=== PATIENT | female | born 1945 | race Caucasian/White ===

== ENCOUNTER 2018-08-07 11:01 | Inpatient (IN) | payer MEDICARE, OTHER ==
[2018-08-07] MEDS ORDERED: ALBUTEROL/IPRATROPIUM 1 VIAL SOL ONE ×2 (11:08→11:33)
[2018-08-07] MEDS ORDERED: ALBUTEROL/IPRATROPIUM 1 VIAL SOL INH ONE ×2 (11:10→11:30)
[2018-08-07] MEDS ORDERED: SOLUMEDROL 125 MG/2 ML 125 MG/2 ML PDS IV ONE (11:21)
[2018-08-07] MEDS ORDERED: SODIUM CHLORIDE 0.9% 1000ML 1,000 ML IV ONE (11:22)
[2018-08-07] MEDS ORDERED: SOLUMEDROL 125 MG/2 ML 125 MG/2 ML PDS ONE (11:29)
[2018-08-07 11:30] LABS: ABG PH 7.44 (7.35-7.45)
[2018-08-07 11:30] LABS: BASOPHILS % (AUTO) 1 % (0-3); EOSINOPHILS % (AUTO) 10 % (0-9); HEMATOCRIT 43 % (35-47); HEMOGLOBIN 14.8 gm/dl (12.0-15.5); LYMPHOCYTES % (AUTO) 9.6 % (10-50); MEAN CORPUSCULAR HEMOGLOBIN 30.7 pg (27.0-32.0); MEAN CORPUSCULAR HGB CONC 34.3 gm/dl (32.0-36.0); MEAN CORPUSCULAR VOLUME 89 fL (81-99); MONOCYTES % (AUTO) 3.9 % (0-12); NEUTROPHILS % (AUTO) 75.2 % (37-80)
[2018-08-07 11:51] LABS: ALBUMIN 3.9 gm/dl (3.4-5.0); ALKALINE PHOSPHATASE 76 IU/L (46-116); ALT 29 IU/L (14-63); AST 25 IU/L (15-37); BLOOD UREA NITROGEN 15 mg/dl (7-18); CALCIUM 9.4 mg/dl (8.5-10.1); CARBON DIOXIDE 23.8 mEq/L (21-32); CHLORIDE 100 mMol/L (98-107); CREATININE 0.79 mg/dl (0.60-1.00); GLUCOSE 189 mg/dl (74-106); POTASSIUM 3.5 mMol/L (3.5-5.1); SODIUM 136 mMol/L (136-145); TOTAL PROTEIN 7.5 gm/dl (6.4-8.2); TROP I < 0.017 ng/ml (0.000-0.056)
[2018-08-07 12:07] LABS: LACTIC ACID 1.1 mMol/L (0.0-2.0)
[2018-08-07] MEDS ORDERED: SOLUMEDROL 125 MG/2 ML 125 MG/2 ML PDS IV SCH (13:30)
[2018-08-07] MEDS: ALBUTEROL NEB SOL 2.5MG/3ML 1 VIAL SOL NEB PRN ×3 (14:16→21:14)
[2018-08-07] MEDS: ALBUTEROL/IPRATROPIUM 1 VIAL SOL INH SCH ×2 (14:23→19:50)
[2018-08-07] MEDS: SODIUM CHLORIDE 0.9% 1000ML 1,000 ML IV SCH (16:59)
[2018-08-07] MEDS: SOLUMEDROL 125 MG/2 ML 125 MG/2 ML PDS IV SCH (19:54)
[2018-08-07] MEDS ORDERED: MONTELUKAST SODIUM 10 MG TAB ONE (21:12)
[2018-08-07] MEDS: ATORVASTATIN 10 MG TAB PO SCH (21:19)
[2018-08-07] MEDS: MONTELUKAST SODIUM 5 MG CTB PO SCH (21:20)
[2018-08-07] MEDS: Non-Formulary Medication MISC (Budesonide/Formoterol 160/4.5 2 PUFF) INH SCH (21:21)
[2018-08-07] MEDS: AZITHROMYCIN 250 MG TAB PO SCH (21:36)
[2018-08-08] MEDS: ALBUTEROL/IPRATROPIUM 1 VIAL SOL INH SCH ×4 (00:46→19:48)
[2018-08-08] MEDS: ALBUTEROL NEB SOL 2.5MG/3ML 1 VIAL SOL NEB PRN ×4 (02:11→17:27)
[2018-08-08] MEDS: SODIUM CHLORIDE 0.9% 1000ML 1,000 ML IV SCH ×2 (02:14→13:37)
[2018-08-08] MEDS: SOLUMEDROL 125 MG/2 ML 125 MG/2 ML PDS IV SCH ×3 (04:19→19:54)
[2018-08-08] MEDS: PANTOPRAZOLE SODIUM 40 MG ECT PO SCH (06:29)
[2018-08-08] MEDS: LEVOTHYROXINE SODIUM 50 MCG TAB PO SCH (06:29)
[2018-08-08] MEDS ORDERED: OMEPRAZOLE 20 MG CAPSULE PO SCH (07:00)
[2018-08-08] MEDS ORDERED: LEVOTHYROXINE SODIUM PO SCH (07:00)
[2018-08-08] MEDS ORDERED: [UNRECOGNIZED DRUG - OTHER] PO SCH (09:00)
[2018-08-08] MEDS ORDERED: AZITHROMYCIN 500 MG PDS IV SCH (09:00)
[2018-08-08] MEDS ORDERED: CALCIUM CITRATE PO SCH (09:00)
[2018-08-08] MEDS ORDERED: VITAMIN D3 PO SCH (09:00)
[2018-08-08] MEDS: Non-Formulary Medication MISC (Budesonide/Formoterol 160/4.5 2 PUFF) INH SCH (09:02)
[2018-08-08] MEDS: HYDROCHLOROTHIAZIDE 25 MG TAB PO SCH (09:03)
[2018-08-08] MEDS: LORATADINE 10 MG TAB PO SCH (09:03)
[2018-08-08] MEDS: LOSARTAN POTASSIUM 50 MG TAB PO SCH (09:03)
[2018-08-08] MEDS ORDERED: SODIUM CHLORIDE 0.9% 50 ML 50 ML IV ONE ×2 (09:07→20:00)
[2018-08-08] MEDS ORDERED: CEFTRIAXONE 1 GM PDS ONE ×2 (09:07→20:00)
[2018-08-08] MEDS: CALCIUM CARBONATE 500 MG TAB PO SCH (09:10)
[2018-08-08] MEDS: CHOLECALCIFEROL 1,000 IU TAB PO SCH (09:10)
[2018-08-08] MEDS: BUDESONIDE/FORMOTEROL 160/4.5 AER INH SCH ×2 (09:11→21:11)
[2018-08-08] MEDS: CEFTRIAXONE 1 GM PDS 1 GM in SODIUM CHLORIDE 0.9% 50 ML 50 ML IV SCH ×2 (09:21→20:08)
[2018-08-08] MEDS: SODIUM CHLORIDE 0.9% FLUSH 10 ML SOL IV SCH ×3 (17:39→20:08)
[2018-08-08] MEDS: AZITHROMYCIN 250 MG TAB PO SCH ×2 (19:46→21:11)
[2018-08-08] MEDS: ATORVASTATIN 10 MG TAB PO SCH (21:08)
[2018-08-08] MEDS: MONTELUKAST SODIUM 5 MG CTB PO SCH (21:10)
[2018-08-09] MEDS: ALBUTEROL/IPRATROPIUM 1 VIAL SOL INH SCH ×4 (01:27→20:03)
[2018-08-09] MEDS: SOLUMEDROL 125 MG/2 ML 125 MG/2 ML PDS IV SCH ×3 (04:12→20:05)
[2018-08-09] MEDS: SODIUM CHLORIDE 0.9% FLUSH 10 ML SOL IV SCH ×3 (04:12→20:06)
[2018-08-09] MEDS: PANTOPRAZOLE SODIUM 40 MG ECT PO SCH (07:12)
[2018-08-09] MEDS: LEVOTHYROXINE SODIUM 50 MCG TAB PO SCH (07:12)
[2018-08-09] MEDS ORDERED: CEFTRIAXONE 1 GM PDS ONE ×2 (08:54→19:57)
[2018-08-09] MEDS: CEFTRIAXONE 1 GM PDS 1 GM in SODIUM CHLORIDE 0.9% 50 ML 50 ML IV SCH ×2 (09:13→20:06)
[2018-08-09] MEDS: BUDESONIDE/FORMOTEROL 160/4.5 AER INH SCH ×2 (09:16→20:10)
[2018-08-09] MEDS: LORATADINE 10 MG TAB PO SCH (09:17)
[2018-08-09] MEDS: LOSARTAN POTASSIUM 50 MG TAB PO SCH (09:18)
[2018-08-09] MEDS: HYDROCHLOROTHIAZIDE 25 MG TAB PO SCH (09:18)
[2018-08-09] MEDS: CHOLECALCIFEROL 1,000 IU TAB PO SCH (09:18)
[2018-08-09] MEDS: CALCIUM CARBONATE 500 MG TAB PO SCH (11:01)
[2018-08-09] MEDS ORDERED: SODIUM CHLORIDE 0.9% 50 ML 50 ML IV ONE (19:59)
[2018-08-09] MEDS: ATORVASTATIN 10 MG TAB PO SCH (20:07)
[2018-08-09] MEDS: SENNOSIDES A AND B 8.6 MG TAB PO SCH (20:08)
[2018-08-09] MEDS: MONTELUKAST SODIUM 10 MG TAB PO SCH (20:09)
[2018-08-09] MEDS: AZITHROMYCIN 250 MG TAB PO SCH (20:10)
[2018-08-10] MEDS: ALBUTEROL/IPRATROPIUM 1 VIAL SOL INH SCH ×4 (01:01→19:57)
[2018-08-10] MEDS: SOLUMEDROL 125 MG/2 ML 125 MG/2 ML PDS IV SCH (04:38)
[2018-08-10] MEDS: SODIUM CHLORIDE 0.9% FLUSH 10 ML SOL IV SCH ×3 (04:38→19:57)
[2018-08-10] MEDS: ALBUTEROL NEB SOL 2.5MG/3ML 1 VIAL SOL NEB PRN (05:39)
[2018-08-10] MEDS: PANTOPRAZOLE SODIUM 40 MG ECT PO SCH (06:24)
[2018-08-10] MEDS: LEVOTHYROXINE SODIUM 50 MCG TAB PO SCH (06:24)
[2018-08-10 07:11] LABS: BASOPHILS % (AUTO) 0 % (0-3); EOSINOPHILS % (AUTO) 0 % (0-9); HEMATOCRIT 40 % (35-47); HEMOGLOBIN 13.7 gm/dl (12.0-15.5); LYMPHOCYTES % (AUTO) 6.2 % (10-50); MEAN CORPUSCULAR HEMOGLOBIN 30.5 pg (27.0-32.0); MEAN CORPUSCULAR HGB CONC 34.1 gm/dl (32.0-36.0); MEAN CORPUSCULAR VOLUME 89 fL (81-99); MONOCYTES % (AUTO) 4.4 % (0-12); NEUTROPHILS % (AUTO) 89.2 % (37-80)
[2018-08-10 07:16] LABS: CALCIUM 8.6 mg/dl (8.5-10.1); CARBON DIOXIDE 27.4 mEq/L (21-32); CREATININE 0.63 mg/dl (0.60-1.00); POTASSIUM 3.1 mMol/L (3.5-5.1)
[2018-08-10] MEDS ORDERED: POTASSIUM CHLORIDE 10 MEQ TER PO SCH (08:00)
[2018-08-10] MEDS: CHOLECALCIFEROL 1,000 IU TAB PO SCH (08:29)
[2018-08-10] MEDS: SENNOSIDES A AND B 8.6 MG TAB PO SCH ×2 (08:30→20:05)
[2018-08-10] MEDS: LOSARTAN POTASSIUM 50 MG TAB PO SCH (08:30)
[2018-08-10] MEDS: CALCIUM CARBONATE 500 MG TAB PO SCH (08:30)
[2018-08-10] MEDS: HYDROCHLOROTHIAZIDE 25 MG TAB PO SCH (08:30)
[2018-08-10] MEDS: LORATADINE 10 MG TAB PO SCH (08:31)
[2018-08-10] MEDS: BUDESONIDE/FORMOTEROL 160/4.5 AER INH SCH ×2 (08:32→20:06)
[2018-08-10] MEDS ORDERED: SODIUM CHLORIDE 0.9% 50 ML 50 ML IV ONE ×2 (08:34→19:49)
[2018-08-10] MEDS ORDERED: CEFTRIAXONE 1 GM PDS ONE ×2 (08:34→19:49)
[2018-08-10] MEDS: CEFTRIAXONE 1 GM PDS 1 GM in SODIUM CHLORIDE 0.9% 50 ML 50 ML IV SCH ×2 (08:43→19:57)
[2018-08-10] MEDS: PREDNISONE 20 MG TAB PO SCH (11:37)
[2018-08-10] MEDS: ATORVASTATIN 10 MG TAB PO SCH (20:05)
[2018-08-10] MEDS: AZITHROMYCIN 250 MG TAB PO SCH (20:06)
[2018-08-10] MEDS: MONTELUKAST SODIUM 10 MG TAB PO SCH (20:06)
[2018-08-11] MEDS: ALBUTEROL/IPRATROPIUM 1 VIAL SOL INH SCH ×3 (01:51→13:29)
[2018-08-11] MEDS: SODIUM CHLORIDE 0.9% FLUSH 10 ML SOL IV SCH ×3 (01:58→13:32)
[2018-08-11] MEDS: PANTOPRAZOLE SODIUM 40 MG ECT PO SCH (06:36)
[2018-08-11] MEDS: LEVOTHYROXINE SODIUM 50 MCG TAB PO SCH (06:36)
[2018-08-11 07:24] LABS: CALCIUM 8.7 mg/dl (8.5-10.1); CARBON DIOXIDE 28.5 mEq/L (21-32); CREATININE 0.71 mg/dl (0.60-1.00); POTASSIUM 3.1 mMol/L (3.5-5.1)
[2018-08-11 07:26] VITALS: RESP 20
[2018-08-11 07:27] LABS: BASOPHILS % (AUTO) 1 % (0-3); EOSINOPHILS % (AUTO) 0 % (0-9); HEMATOCRIT 41 % (35-47); HEMOGLOBIN 13.6 gm/dl (12.0-15.5); LYMPHOCYTES % (AUTO) 26.2 % (10-50); MEAN CORPUSCULAR HEMOGLOBIN 29.9 pg (27.0-32.0); MEAN CORPUSCULAR VOLUME 91 fL (81-99); MONOCYTES % (AUTO) 11.7 % (0-12); NEUTROPHILS % (AUTO) 61.3 % (37-80)
[2018-08-11] MEDS: CHOLECALCIFEROL 1,000 IU TAB PO SCH (08:39)
[2018-08-11] MEDS: SENNOSIDES A AND B 8.6 MG TAB PO SCH (08:39)
[2018-08-11] MEDS: PREDNISONE 20 MG TAB PO SCH (08:40)
[2018-08-11] MEDS: LOSARTAN POTASSIUM 50 MG TAB PO SCH (08:40)
[2018-08-11] MEDS: HYDROCHLOROTHIAZIDE 25 MG TAB PO SCH (08:40)
[2018-08-11] MEDS: LORATADINE 10 MG TAB PO SCH (08:40)
[2018-08-11] MEDS: CALCIUM CARBONATE 500 MG TAB PO SCH (08:40)
[2018-08-11] MEDS: BUDESONIDE/FORMOTEROL 160/4.5 AER INH SCH (08:41)
[2018-08-11] MEDS ORDERED: SODIUM CHLORIDE 0.9% 50 ML 50 ML IV ONE (08:43)
[2018-08-11] MEDS ORDERED: CEFTRIAXONE 1 GM PDS ONE (08:43)
[2018-08-11] MEDS ORDERED: POTASSIUM CHLORIDE 10 MEQ TER PO SCH (08:45)
[2018-08-11] MEDS: CEFTRIAXONE 1 GM PDS 1 GM in SODIUM CHLORIDE 0.9% 50 ML 50 ML IV SCH (08:47)
[2018-08-11 16:30] VITALS: BP 161/90; PULSE 87; TEMP 98.4; O2SAT 92
== END 2018-08-11 16:45 | disposition home or self-care (01) | DRG 202 ==
LOC: ED 11:01 → UNDOADMOB 13:15 → ACUTE CARE 13:15 → OBSVTOIN 08-09 08:35
PROVIDERS: ADMIT Internal Medicine; ATTEND Internal Medicine
DX: J45.901 Unspecified asthma with (acute) exacerbation (principal); T17.890A Other foreign object in other parts of respiratory tract causing asphyxiation, initial encounter; R06.02 Shortness of breath; R09.02 Hypoxemia; J44.9 Chronic obstructive pulmonary disease, unspecified; R00.0 Tachycardia, unspecified; I10 Essential (primary) hypertension; E87.6 Hypokalemia
CPT/HCPCS: 36415; 36600; 71045; 71275; 80048; 80053; 82803; 84484; 85025; 87040; 87070; 87205; 93005; 93012; 94150; 94640; 94660; 94669; 94762; 96365; 96374; 99070; 99285; J0456; J0696; J2930; J7613; Q9967; A9270-GY